=== PATIENT | female | born 1970 | race Caucasian/White ===

== ENCOUNTER 2021-04-05 20:41 | Emergency (ER) | payer BC ==
--- NOTE | 2021-04-05 21:52 | EDM.PDOC ---
ED HPI GENERAL MEDICAL PROBLEM - General Chief Complaint: Genitourinary Problem Stated Complaint: BLOOD IN URINE Time Seen by Provider: 04/05/21 20:42 Source of Information: Reports: Patient History Limitations: Reports: No Limitations - History of Present Illness INITIAL COMMENTS - FREE TEXT/NARRATIVE: Chief complaint: bladder pain. This is a 50 year old female who reports at 4 pm today started to have bladder pain, frequency and urgency. she report low grade fever, back pain. Reports has never had a bladder infection. past medical hx of high blood pressure and chronic kidney disease stage 4 Onset: Today Onset Date: 04/05/21 Onset Time: 16:00 Duration: Getting Worse Location: Reports: Abdomen, Radiates to (low back) Quality: Reports: Ache, Burning, Pressure, Other (frequency) Severity: Moderate Improves with: Reports: None Worsens with: Reports: Other (voiding) Associated Symptoms: Reports: Malaise Treatments ACTUARIAL CONSULTANT: Reports: Other (see below) (increased water) Pelvic Pain Score (Numeric/FACES): 6 - Related Data Allergies Allergy/AdvReac Type Severity Reaction Status Date / Time furosemide Allergy Nose Bleeds Verified 04/05/21 21:21 Home Meds: Home Meds lisinopriL [Lisinopril] 10 mg PO DAILY 04/05/21 [History] Past Medical History Genitourinary History: Reports: Other (See Below) Other Genitourinary History: CKD III Social & Family History - Tobacco Use Tobacco Use Status *Q: Never Tobacco User Second Hand Smoke Exposure: No - Caffeine Use Caffeine Use: Reports: None - Alcohol Use Days Per Week of Alcohol Use: 7 Number of Drinks Per Day: 1 Total Drinks Per Week: 7 - Recreational Drug Use Recreational Drug Use: No ED ROS GENERAL - Review of Systems Review Of Systems: See Below Constitutional: Reports: No Symptoms, Fever, Malaise, Decreased Appetite, Other (bladder pain) HEENT: Reports: No Symptoms Respiratory: Reports: No Symptoms Cardiovascular: Reports: No Symptoms Endocrine: Reports: No Symptoms GI/Abdominal: Reports: Nausea : Reports: Dysuria, Flank Pain, Frequency, Hematuria, Irregular Menses, Urgency Musculoskeletal: Reports: Back Pain (low back pain) Skin: Reports: No Symptoms Neurological: Reports: No Symptoms Psychiatric: Reports: No Symptoms Hematologic/Lymphatic: Reports: No Symptoms Immunologic: Reports: No Symptoms ED EXAM, GI/ABD - Physical Exam Exam: See Below Exam Limited By: No Limitations General Appearance: Alert, WD/WN, No Apparent Distress, Other (neat and well groomed-pleasant) Eyes: Bilateral: Normal Appearance Ears: Normal External Exam Nose: Normal Inspection Throat/Mouth: Normal Inspection, Normal Lips, Normal Teeth, Normal Gums, Normal Oropharynx, Normal Voice, No Airway Compromise Head: Atraumatic, Normocephalic Neck: Normal Inspection, Supple, Full Range of Motion Respiratory/Chest: No Respiratory Distress, Lungs Clear, Normal Breath Sounds, No Accessory Muscle Use, Chest Non-Tender Cardiovascular: Regular Rate, Rhythm, No Murmur GI/Abdominal Exam: Normal Bowel Sounds, Soft, Non-Tender (Female) Exam: Deferred Rectal (Female) Exam: Deferred Back Exam: Normal Inspection, Full Range of Motion, Other (bilateral low back pain) Extremities: Normal Inspection, Normal Range of Motion Neurological: Alert, Oriented, Normal Cognition, Normal Gait, Normal Reflexes, No Motor/Sensory Deficits Psychiatric: Normal Affect, Normal Mood Skin Exam: Warm, Dry, Intact, Normal Color, No Rash Lymphatic: No Adenopathy Course - Vital Signs Last Recorded V/S: Last Vital Signs Temp 98.0 F 04/05/21 21:16 Pulse 106 H 04/05/21 21:16 Resp 17 04/05/21 21:16 BP 150/85 H 04/05/21 21:16 Pulse Ox 94 L 04/05/21 21:16 - Orders/Labs/Meds Orders: Active Orders 24 hr Category Date Time Status CULTURE URINE [RM] Stat Lab 04/05/21 21:45 Received - Re-Assessments/Exams Free Text/Narrative Re-Assessment/Exam: 04/05/21 22:10 urine positive for infection- discussed lab results with Barb discussed with Barb- will start medication tonight, urine culture pending. Barb agrees with plan of care Departure - Departure Time of Disposition: 21:46 Disposition: Home, Self-Care 01 Condition: Good Clinical Impression: UTI, Urinary tract infectious disease - Discharge Information *PRESCRIPTION DRUG MONITORING PROGRAM REVIEWED*: Not Applicable *COPY OF PRESCRIPTION DRUG MONITORING REPORT IN PATIENT [place]: Not Applicable Instructions: Urinary Tract Infection, Adult, [id number] Referrals: PCP,None [Primary Care Provider] - Forms: ED Department Discharge Care Plan Goals: Urinary Tract Infection- (bladder infection) -start tonight Keflex one in evening and morning for 10 days for infection -start tonight Pyridium 200 mg every 8 hours as needed for bladder pain -drink 8 to 10 glasses of water -return to ER for any increased in pain, fever, chills, nausea, vomiting, rash or not improved Sepsis Event Note (ED) - Evaluation Sepsis Screening Result: No Definite Risk - Focused Exam Vital Signs: Vital Signs Temp Pulse Resp BP Pulse Ox 04/05/21 21:16 98.0 F 106 H 17 150/85 H 94 L - Problem List & Annotations (1) UTI, Urinary tract infectious disease SNOMED Code(s): 63007589 Code(s): N39.0 - URINARY TRACT INFECTION, SITE NOT SPECIFIED Status: Acute Priority: High Current Visit: Yes - Problem List Review Problem List Initiated/Reviewed/Updated: Yes - My Orders Last 24 Hours: My Active Orders 04/05/21 21:45 CULTURE URINE [RM] Stat - Assessment/Plan Last 24 Hours: My Active Orders 04/05/21 21:45 CULTURE URINE [RM] Stat Plan: Urinary Tract Infection- (bladder infection) -urine culture pending -start tonight Keflex one in evening and morning for 10 days for infection -start tonight Pyridium 200 mg every 8 hours as needed for bladder pain -drink 8 to 10 glasses of water -return to ER for any increased in pain, fever, chills, nausea, vomiting, rash or not improved
== END 2021-04-05 21:59 | disposition home or self-care (01) ==
LOC: JP.ED 20:41
DX: N39.0 Urinary tract infection, site not specified (principal); N18.30 Chronic kidney disease, stage 3 unspecified; Z88.8 Allergy status to other drugs, medicaments and biological substances; Z79.899 Other long term (current) drug therapy
CPT/HCPCS: 87086; 99283